=== PATIENT | male | born 1970 | race African-American/Black ===

== ENCOUNTER 2023-11-17 22:42 | Emergency (ER) | payer OTHER ==
[2023-11-17 22:59] VITALS: TEMP 98.8
--- NOTE | 2023-11-17 23:15 | ED ---
Psych HPI - General Source: EMS, RN notes reviewed, old records reviewed Mode of arrival: EMS Limitations: no limitations, altered mental status - History of Present Illness MD Complaint: feels depressed, altered mental status, other (Poor historian) -: unknown Associated Psychiatric Symptoms: homicidal ideation, racing thoughts Quality: constant Improves With: none Worsens With: none Treatments Prior to Arrival: placed on mental health hold If Self Harm: admits thoughts of self harm <Franco Partida - Last Filed: 11/18/23 01:07> <Zia Mckeon - Last Filed: 11/18/23 19:16> - General Chief Complaint: Psychiatric Symptoms Stated Complaint: Behavioral Time Seen by Provider: 11/17/23 22:52 - History of Present Illness Initial Comments: This is a 53-year-old male to ER for evaluation of psychiatric illness and behavioral health patient acting inappropriately and was found lying on the ground (Franco Partida) - Related Data Allergies Allergy/AdvReac Type Severity Reaction Status Date / Time No Known Allergies Allergy Verified 11/17/23 22:52 Review of Systems ROS Other: All systems not noted in ROS Statement are negative. <Franco Partida - Last Filed: 11/18/23 01:07> ROS Other: All systems not noted in ROS Statement are negative. <Zia Mckeon - Last Filed: 11/18/23 19:16> ROS Statement: Those systems with pertinent positive or pertinent negative responses have been documented in the HPI. Past Medical History Past Medical History: Diabetes Mellitus, Hypertension History of Any Multi-Drug Resistant Organisms: None Reported Additional Past Surgical History / Comment(s): Left hip hardware Past Psychological History: Bipolar, Schizophrenia Smoking Status: Current every day smoker Past Alcohol Use History: None Reported Past Drug Use History: None Reported <Franco Partida - Last Filed: 11/18/23 01:07> General Exam Limitations: no limitations General appearance: alert, in no apparent distress Head exam: Present: atraumatic, normocephalic, normal inspection Eye exam: Present: normal appearance, PERRL, EOMI. Absent: scleral icterus, conjunctival injection, periorbital swelling ENT exam: Present: normal exam, mucous membranes moist Neck exam: Present: normal inspection. Absent: tenderness, meningismus, lymphadenopathy Respiratory exam: Present: normal lung sounds bilaterally. Absent: respiratory distress, wheezes, rales, rhonchi, stridor Cardiovascular Exam: Present: regular rate, normal rhythm, normal heart sounds. Absent: systolic murmur, diastolic murmur, rubs, gallop, clicks GI/Abdominal exam: Present: soft, normal bowel sounds. Absent: distended, tenderness, guarding, rebound, rigid Extremities exam: Present: normal inspection, full ROM, normal capillary refill. Absent: tenderness, pedal edema, joint swelling, calf tenderness Back exam: Present: normal inspection Neurological exam: Present: alert, oriented X3, CN II-XII intact Psychiatric exam: Present: normal affect, normal mood Skin exam: Present: warm, dry, intact, normal color. Absent: rash <Franco Partida - Last Filed: 11/18/23 01:07> Course <Franco Partida - Last Filed: 11/18/23 01:07> Vital Signs 11/17/23 11/18/23 22:45 07:33 Temperature 98.8 F Pulse Rate 79 82 Respiratory 16 18 Rate Blood Pressure 123/87 130/82 O2 Sat by Pulse 99 98 Oximetry - Reevaluation(s) Reevaluation #1: 11/18/23 01:07 Medical records reviewed (Franco Partida) Reevaluation #2: 11/18/23 01:07 Patient symptoms unchanged (Franco Partida) Medical Decision Making - Lab Data Result diagrams: 11/18/23 14:25 11/18/23 14:25 <Zia Mckeon - Last Filed: 11/18/23 19:16> - Medical Decision Making Patient was boarding in our emergency department pending psychiatric evaluation. Was cleared by the prior provider. EPS requested labs which were completed. They evaluated the patient and cleared him for discharge. Labs were remarkable primarily for hyperglycemia in the setting of uncontrolled diabetes. No evidence of DKA. He cannot recall which oral medication he is on but he takes 1 pill/day and has not taken the last 3 days he states. He will be given IV insulin. We are awaiting EPS evaluation. EPS evaluate the patient, and determined that he is cleared for discharge. Does not meet patient criteria. He was given a safety plan. Patient's blood sugars improved. I recommended he remain compliant with his diabetic medications and he was in agreement this plan. Strict return precautions discussed. States he does not require refill. I instructed the patient to follow up with their PCP in the next 1-3 days. I explained that the patient should return to the emergency department if they experience any worsening symptoms. Strict return precautions were discussed with the patient. The patient expressed understanding of these instructions. I answered all questions that the patient had. The patient was discharged home in good condition with their prescriptions and follow up information. Diagnosis/symptom? @ -Encounter for psychiatric evaluation, hyperglycemia in the setting of diabetes Acute, or Chronic, or Acute on Chronic? @ -Acute Uncomplicated (without systemic symptoms) or Complicated (systemic symptoms)? @ -Uncomplicated Side effects of treatment? @ -None Exacerbation, Progression, or Severe Exacerbation] @ -No Poses a threat to life or bodily function? @ -No (Zia Mckeon) - Lab Data Lab Results 11/18/23 11/18/23 11/18/23 Range/Units 14:25 14:25 17:29 WBC 6.0 (3.8-10.6) k/uL RBC 4.38 (4.30-5.90) m/uL Hgb 13.8 (13.0-17.5) gm/dL Hct 43.4 (39.0-53.0) % MCV 99.1 (80.0-100.0) fL MCH 31.6 (25.0-35.0) pg MCHC 31.9 (31.0-37.0) g/dL RDW 12.7 (11.5-15.5) % Plt Count 235 (150-450) k/uL MPV 7.9 Neutrophils % 66 % Lymphocytes % 27 % Monocytes % 4 % Eosinophils % 1 % Basophils % 1 % Neutrophils # 3.9 (1.3-7.7) k/uL Lymphocytes # 1.6 (1.0-4.8) k/uL Monocytes # 0.2 (0-1.0) k/uL Eosinophils # 0.1 (0-0.7) k/uL Basophils # 0.1 (0-0.2) k/uL Sodium 128 L (137-145) mmol/L Potassium 4.7 (3.5-5.1) mmol/L Chloride 93 L (98-107) mmol/L Carbon Dioxide 29 (22-30) mmol/L Anion Gap 6 mmol/L BUN 15 (9-20) mg/dL Creatinine 0.82 (0.66-1.25) mg/dL Est GFR (CKD-EPI)AfAm >90 (>60 ml/min/1.73 sqM) Est GFR (CKD-EPI)NonAf >90 (>60 ml/min/1.73 sqM) Glucose 469 H (74-99) mg/dL POC Glucose (mg/dL) 491 H (70-110) mg/dL POC Glu [employer] ID Lian Adhikari Calcium 8.9 (8.4-10.2) mg/dL Total Bilirubin 0.7 (0.2-1.3) mg/dL AST 65 H (17-59) U/L ALT 30 (4-49) U/L Alkaline Phosphatase 138 H (38-126) U/L Total Protein 6.8 (6.3-8.2) g/dL Albumin 4.1 (3.5-5.0) g/dL 11/18/23 Range/Units 19:09 WBC (3.8-10.6) k/uL RBC (4.30-5.90) m/uL Hgb (13.0-17.5) gm/dL Hct (39.0-53.0) % MCV (80.0-100.0) fL MCH (25.0-35.0) pg MCHC (31.0-37.0) g/dL RDW (11.5-15.5) % Plt Count (150-450) k/uL MPV Neutrophils % % Lymphocytes % % Monocytes % % Eosinophils % % Basophils % % Neutrophils # (1.3-7.7) k/uL Lymphocytes # (1.0-4.8) k/uL Monocytes # (0-1.0) k/uL Eosinophils # (0-0.7) k/uL Basophils # (0-0.2) k/uL Sodium (137-145) mmol/L Potassium (3.5-5.1) mmol/L Chloride (98-107) mmol/L Carbon Dioxide (22-30) mmol/L Anion Gap mmol/L BUN (9-20) mg/dL Creatinine (0.66-1.25) mg/dL Est GFR (CKD-EPI)AfAm (>60 ml/min/1.73 sqM) Est GFR (CKD-EPI)NonAf (>60 ml/min/1.73 sqM) Glucose (74-99) mg/dL POC Glucose (mg/dL) 335 H (70-110) mg/dL POC Glu [employer] ID Shimon Morgan Calcium (8.4-10.2) mg/dL Total Bilirubin (0.2-1.3) mg/dL AST (17-59) U/L ALT (4-49) U/L Alkaline Phosphatase (38-126) U/L Total Protein (6.3-8.2) g/dL Albumin (3.5-5.0) g/dL Disposition <Franco Partida - Last Filed: 11/18/23 01:07> Is patient prescribed a controlled substance at d/c from ED?: No Time of Disposition: 19:12 <Zia Mckeon - Last Filed: 11/18/23 19:16> Clinical Impression: Hyperglycemia, Encounter for psychiatric assessment Disposition: HOME SELF-CARE Condition: Good Instructions (If sedation given, give patient instructions): Diabetes and Nutrition (ED), Diabetes and Exercise (ED) Additional Instructions: follow safety plan Referrals: None,Stated [Primary Care Provider] - 1-2 days Forms: Area PCPs
[2023-11-18 07:57] VITALS: BP 130/82; PULSE 82; RESP 18
[2023-11-18 15:29] LABS: Basophils # (A) 0.1 k/uL (0-0.2); Basophils % (A) 1 %; Eosinophils # (A) 0.1 k/uL (0-0.7); Eosinophils % (A) 1 %; HCT 43.4 % (39.0-53.0); HGB 13.8 gm/dL (13.0-17.5); Lymphocytes # (A) 1.6 k/uL (1.0-4.8); Lymphocytes % (A) 27 %; MCH 31.6 pg (25.0-35.0); MCHC 31.9 g/dL (31.0-37.0); MCV 99.1 fL (80.0-100.0); Mean Platelet Volume 7.9; Monocytes # (A) 0.2 k/uL (0-1.0); Monocytes % (A) 4 %; Neutrophils # (A) 3.9 k/uL (1.3-7.7); Neutrophils % (A) 66 %; Platelet Count 235 k/uL (150-450); RBC 4.38 m/uL (4.30-5.90); RDW 12.7 % (11.5-15.5)
[2023-11-18 15:47] LABS: ALT 30 U/L (4-49); AST 65 U/L (17-59); African American GFR (CKD) >90 (>60 ml/min/1.73 sqM); Albumin 4.1 g/dL (3.5-5.0); Alkaline Phosphatase 138 U/L (38-126); Anion Gap 6 mmol/L; Blood Urea Nitrogen 15 mg/dL (9-20); Calcium 8.9 mg/dL (8.4-10.2); Carbon Dioxide 29 mmol/L (22-30); Chloride 93 mmol/L (98-107); Glucose 469 mg/dL (74-99); Non-African American GFR(CKD) >90 (>60 ml/min/1.73 sqM); Potassium 4.7 mmol/L (3.5-5.1); Sodium 128 mmol/L (137-145); Total Bilirubin 0.7 mg/dL (0.2-1.3); Total Protein 6.8 g/dL (6.3-8.2)
[2023-11-18] MEDS ORDERED: DEXTROSE 50% SYRINGE 50 ML IVP PRN ×2 (16:45)
[2023-11-18] MEDS: INSULIN ASPART (NovoLOG) 100 UNIT/ML VIAL SQ ONE (16:51)
[2023-11-18 17:30] LABS: Glucose,Whole Blood 491 mg/dL (70-110)
[2023-11-18] MEDS: INSULIN ASPART (NovoLOG) 100 UNIT/ML VIAL SQ SCH (18:47)
[2023-11-18 19:12] LABS: Glucose,Whole Blood 335 mg/dL (70-110)
== END 2023-11-18 20:16 | disposition home or self-care (01) ==
LOC: EC 22:42
DX: Z13.39 Encounter for screening examination for other mental health and behavioral disorders (principal); E11.65 Type 2 diabetes mellitus with hyperglycemia; I10 Essential (primary) hypertension; F17.200 Nicotine dependence, unspecified, uncomplicated
CPT/HCPCS: 36415; 80053; 82075; 85025; 99285